=== PATIENT | male | born 2000 | race Two or more races ===

== ENCOUNTER 2024-04-08 20:20 | Emergency (ER) | payer MEDICAID ==
[~2024-04-08] VITALS: Ht 167.6 cm; Wt 61.5 kg
[2024-04-08] MEDS: proparacaine 0.5% ophthalmic drops 15ml LEFTEYE ONE (22:18)
[2024-04-08] MEDS ORDERED: NEO/5DRO3 LEFTEYE (22:40)
[2024-04-08 22:45] VITALS: BP 125/77; PULSE 81; RESP 16; TEMP 98.7; O2SAT 99
== END 2024-04-08 22:47 | disposition home or self-care (01) ==
LOC: ER 20:21
DX: S05.02XA Injury of conjunctiva and corneal abrasion without foreign body, left eye, initial encounter (principal); X58.XXXA Exposure to other specified factors, initial encounter; Y93.89 Activity, other specified; Y92.89 Other specified places as the place of occurrence of the external cause; Y99.8 Other external cause status
CPT/HCPCS: 99283